=== PATIENT | female | born 1990 | race Caucasian/White ===

== ENCOUNTER 2021-05-20 02:31 | Emergency (ER) | payer BC ==
[~2021-05-20] VITALS: Ht 152.4 cm; Wt 61.2 kg
[2021-05-20] MEDS ORDERED: IBUPROFEN 400 MG TABLET ONE (02:59)
[2021-05-20] MEDS ORDERED: IBUPROFEN 400 MG TABLET PO ONE (03:00)
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
--- NOTE | 2021-05-20 03:07 | NUR ---
PT IN CT
[2021-05-20 03:53] VITALS: BP 138/70
--- NOTE | 2021-05-20 03:53 | NUR ---
Patient discharged to home in stable condition. Written and verbal after care instructions given. Patient verbalizes understanding of instruction.
== END 2021-05-20 03:55 | disposition home or self-care (01) ==
LOC: ER 02:42
DX: S13.4XXA Sprain of ligaments of cervical spine, initial encounter (principal); S09.90XA Unspecified injury of head, initial encounter; M54.6 Pain in thoracic spine; V49.59XA Passenger injured in collision with other motor vehicles in traffic accident, initial encounter; Y93.89 Activity, other specified; Y92.413 State road as the place of occurrence of the external cause; Y99.8 Other external cause status
CPT/HCPCS: 70450; 72074; 72125; 99284; L0172

== ENCOUNTER 2024-04-09 19:33 | Emergency (ER) | payer BC, OTHER ==
[~2024-04-09] VITALS: Ht 152.4 cm; Wt 56.7 kg
[2024-04-09] MEDS ORDERED: KETOROLAC TROMETHAMINE INJ 30 MG/ML VIAL ONE (22:18)
[2024-04-09] MEDS: KETOROLAC TROMETHAMINE INJ 60 MG/2 ML VIAL IM ONE (22:28)
[2024-04-10 00:56] VITALS: BP 148/93; TEMP 98.2; O2SAT 100
== END 2024-04-10 00:57 | disposition home or self-care (01) ==
LOC: ER 19:34
DX: R68.84 Jaw pain (principal); E03.9 Hypothyroidism, unspecified; Z79.899 Other long term (current) drug therapy; Z60.2 Problems related to living alone
CPT/HCPCS: 99285; 70486; 96372; J1885